=== PATIENT | male | born 1950 | race American Indian/Alaskan Native ===

== ENCOUNTER 2020-05-01 14:41 | Outpatient (REF) | payer SELFPAY | END 2020-05-01 14:42 | disposition home or self-care (01) | LOC: HO.LAB 14:41 | PROVIDERS: PCP Internal Medicine; Visit Provider Internal Medicine | DX: Z13.89 Encounter for screening for other disorder (principal) ==

== ENCOUNTER 2021-05-24 14:07 | Outpatient (REF) | payer OTHER, SELFPAY ==
[2021-05-24 15:28] LABS: COVID-19 Test Positive (Negative)
== END 2021-05-24 14:08 | disposition home or self-care (01) ==
LOC: HO.LAB 14:07
PROVIDERS: Visit Provider Internal Medicine
DX: Z20.822 Contact with and (suspected) exposure to COVID-19 (principal)
CPT/HCPCS: 36415; 87635; C9803

== ENCOUNTER 2023-07-23 08:27 | Outpatient (REF) | payer MEDICARE, SELFPAY ==
[2023-07-23 08:47] LABS: MANUAL DIFF FLAG NO
[2023-07-23 09:27] LABS: Basophils Percent Auto 0.6 % (0-2); Eosinophils Absolute Auto 0.1 X10*3/uL (0.0-0.4); Eosinophils Percent Auto 2.7 % (0-4); Hematocrit 45.8 % (42.0-52.0); Hemoglobin 15.4 g/dl (14.0-18.0); Imm Gran Abs Auto 0.02 X10*3/uL (0.00-0.03); Imm Gran Pct Auto 0.4 % (0.0-0.4); Lymphocytes Absolute Auto 2.5 X10*3/uL (1.2-4.9); Mean Corpuscular HGB Conc 33.6 g/dl (31.0-36.0); Mean Corpuscular Hemoglobin 29.1 pg (27.0-33.0); Mean Corpuscular Volume 86.4 fL (80.0-98.0); Mean Platelet Volume 10.1 fL (9.4-12.4); Monocytes Absolute Auto 0.5 X10*3/uL (0.1-1.2); Monocytes Percent Auto 9.3 % (2-11); Neutrophils Absolute Auto 2.1 x10*3/uL (2.0-8.3); Platelet Count 263 X10*3/uL (160-400); Red Cell Distribution Width 13.2 % (11.0-16.0); White Blood Count 5.3 X10*3/uL (4.8-10.8)
[2023-07-23 10:06] LABS: Alanine Aminotransferase 37 U/L (0-40); Albumin Level 4.3 g/dL (3.5-5.0); Alkaline Phosphatase 61 U/L (39-117); Anion Gap 10 (12-20); Aspartate Amino Transferase 22 U/L (5-37); Bilirubin Total 0.6 mg/dL (0.0-1.0); Blood Urea Nitrogen 17 mg/dL (9-16); Calcium 9.5 mg/dL (8.4-10.2); Carbon Dioxide 29 mmol/L (22-29); Chloride 106 mmol/L (96-108); Cholesterol 141 mg/dL (<200); Estimated Glomerular Filt Rate > 60; Glucose Random 112 mg/dL (60-115); HDL Cholesterol 54 mg/dL (>40); LDL Cholesterol Calculated 74 mg/dL (<100); Potassium 4.2 mmol/L (3.3-5.1); Sodium 141 mmol/L (135-145); Total Protein 7.6 g/dL (6.5-8.0); Triglycerides 69 mg/dL (<150)
[2023-07-23 10:10] LABS: Thyroid Stimulating Hormone 3.31 uIU/mL (0.32-4.0)
== END 2023-07-23 08:28 | disposition home or self-care (01) ==
LOC: HO.LAB 08:27
PROVIDERS: PCP Internal Medicine; Visit Provider Internal Medicine
DX: Z00.01 Encounter for general adult medical examination with abnormal findings (principal); I10 Essential (primary) hypertension; R07.89 Other chest pain
CPT/HCPCS: 36415; 80053; 80061; 84443; 85025

== ENCOUNTER 2023-10-05 13:19 | Outpatient (AMB) | payer MEDICARE, SELFPAY ==
[2023-10-05 13:22] VITALS: BP 130/80; PULSE 90; BMI 29.4
--- NOTE | 2023-10-05 13:22 | MHC.OFFVIS ---
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 He states that for the last few months, he has been noticing discomfort in the substernal area as well as the right side of the chest. Exertional characteristics and suggestive of angina. No previous diagnosis of coronary artery disease or myocardial infarction or cardiomyopathy extra. Otherwise, has hypertension on medications. He is here with his daughter who is the engine assembly supervisor. Appropriate form was signed. [facility] Medical History (Updated 10/05/23 @ 13:38 by Daniel Zhang MD) Insomnia Depression Hypertension GERD (gastroesophageal reflux disease) Surgical History History of cataract surgery Family History Father No problems noted. Mother Diabetes Son Chronic mental illness Social History (Updated 10/05/23 @ 13:28 by Linda Briceño CMA) Alcohol intake: never Patient Tobacco Use Status: Never used Tobacco Review of Systems Const Denies chills, Denies fatigue, Denies fever(s), Denies frequent falls, Denies weakness, Denies weight gain and Denies weight loss ENT Denies dizziness Card Denies chest pain, Denies leg edema, Denies lightheadedness, Denies palpitations, Denies dyspnea and Denies dyspnea on exertion Resp Denies cough, Denies dyspnea and Denies dyspnea on exertion GI Denies hematochezia Musc Denies abnormal gait, Denies muscle weakness, Denies numbness, Denies radiating pain into limb and Denies tingling Neuro Denies abnormal gait, Denies dizziness, Denies frequent falls, Denies numbness, Denies tingling and Denies weakness Endo Denies fatigue and Denies palpitations Physical Exam Vital Signs: Last Vital Signs Pulse 90 10/05/23 13:22 BP 130/80 10/05/23 13:22 BMI result Body Mass Index 29.4 Const General: comfortable and no acute distress Orientation/consciousness: patient oriented x3 HEENT Other: Unremarkable Head: Yes normal to inspection Neck Neck: Yes normal visual inspection Chest Chest palpation & inspection: normal inspection of the chest Resp Auscultation: clear to auscultation bilaterally Cardio Palpation: normal PMI Heart sounds: S1 normal heart sound present, S2 normal heart sound present, no gallops, no murmurs and no rubs GI Palpation (GI): Soft to palpation Back/Spine/Pelvis Other: unremarkable Skin General skin exam: no rashes or lesions noted Neuro General: patient oriented x3 Extrem General: Yes normal to inspection Psych Mental Status: mental status grossly normal Office Procedures EKG Details: In the recent EKG, underlying rhythm is sinus at a rate of 90/Min; minimal criteria for LVH; no significant ST-T changes and otherwise unremarkable. [id number], Complete Assessment & Plan Assessment & Plan (1) Precordial chest pain: Code(s): R07.2 - Precordial pain Category: Medical (2) Hypertension: Code(s): I10 - Essential (primary) hypertension Category: Medical Qualifiers: Hypertension type: essential hypertension Qualified Code(s): I10 - Essential (primary) hypertension Plan History suggestive of angina pectoris. We discussed about different options for further workup. Discussed about diagnostic catheterization as the symptoms are fairly classic but he is refusing at this time. He would like to avoid it as much possible. Discussed about the possibility of obstructive coronary disease, risk of myocardial infarction extra but he is still not interested. Hence we can start with noninvasive workup with echocardiogram and stress test. Based on the findings, we can plan further. Patient did not know his medications and we call the pharmacy to get the list but it was after the patient left the office. Hence no changes made for now. Follow-up after testing. Orders: Orders CA echo transthoracic complete Today I25.10 - Atherosclerotic heart disease of [place] coronary artery without angina pectoris, R07.2 - Precordial pain CA stress test Today R07.2 - Precordial pain NM cardiolite stress test Today R07.2 - Precordial pain Coding Level of Care Code New Pt Level 4 (42838) Diagnoses Precordial chest pain R07.2 Essential hypertension I10 Hypertension type: essential hypertension CPT Codes EKG - CPT: 26114-[id number], Complete ([id number])
== END 2023-10-05 13:51 | disposition home or self-care (01) ==
PROVIDERS: PCP Internal Medicine; Visit Provider Internal Medicine
DX: R07.2 Precordial pain (principal); I10 Essential (primary) hypertension
CPT/HCPCS: 93010; 99204

== ENCOUNTER → 2023-10-05 13:19 | Outpatient (BNVA) | payer MEDICARE, SELFPAY | PROVIDERS: PCP Internal Medicine; Visit Provider Internal Medicine | DX: R07.2 Precordial pain (principal); I10 Essential (primary) hypertension | CPT/HCPCS: 93005; 99202 ==

== ENCOUNTER → 2023-11-22 07:51 | Outpatient (REF) | payer MEDICARE, SELFPAY ==
--- NOTE | 2023-11-22 07:57 | CA_ITS ---
Transthoracic Echocardiogram Patient (Last, First, Middle): Adilson Mejía, Gender: Male Date of : 1950 Age: 71 Procedure Date: 11/22/2023 Procedure Type: Transthoracic Echocardiogram Location: OP Height: 157.48 cm Weight: 75.3 kg BSA: 1.77 m2 Heart Rate: 73 bpm BP: 175 / 85 mmHg Enterprise Business Architect: CARSON Referring MD: Daniel Zhang MD Symptoms: I25.10 - Atherosclerotic heart disease of [place] coronary artery without... Study Quality: Fair ECG Rhythm: Sinus Conclusions: - The left ventricular systolic function is normal. The calculated ejection fraction is 62% by biplane method. - There is mildly increased left ventricular wall thickness. - No obvious valvular pathology seen on this study. Findings Left Ventricle Normal left ventricular cavity size. There is mildly increased left ventricular wall thickness. The left ventricular systolic function is normal. The calculated ejection fraction is 62% by biplane method. There is no evidence of regional wall motion abnormalities. Diastolic function is normal for age. LV peak GLS -15.5%; possibly underestimate. Right Ventricle Mildly increased right ventricular cavity size. There is normal right ventricular systolic function. Atria Both atria are normal in size. Aortic Valve There is a normal trileaflet aortic valve. There is no aortic valve stenosis. There is trace (trivial) aortic valve regurgitation. Mitral Valve The mitral valve appears normal. There is trace mitral valve regurgitation. There is no mitral valve stenosis. Pulmonic Valve The pulmonic valve is likely normal. Tricuspid Valve Normal tricuspid valve structure. There is mild tricuspid valve regurgitation. There is no evidence of pulmonary hypertension. Great Vessels There is mild dilatation of the ascending aorta measuring 4.00 cm. Venous The inferior vena cava is normal in size and collapses greater than 50% with inspiration. Pericardium/Pleural There is no evidence of pericardial effusion. Prior Study Comparison No significant change compared to prior study dated: 11/11/2010. Recommendations, Care & Conclusions No obvious valvular pathology seen on this study. Measurements 2D Linear Measurements IVSd: 1.27 0.6-0.9/0.6-1.0 cm LVIDd: 3.36 3.9-5.3/4.2-5.9 cm LVIDd Index: 1.90 2.4-3.2/2.2-3.1 cm/m2 LVIDs: 1.85 2.0-3.6 cm LVPWd: 1.21 0.7-1.1 cm LA Diam: 2.90 2.7-3.8/3.0-4.0 cm LAIDs Index: 1.64 1.5-2.3 cm/m2 LV Mass: 167.69 67-162/88-224 g LV Mass Index: 94.74 43-95/49-115 g/m2 LVOT Diam: 1.80 3.0+(-)1.3 cm 2D Systolic Function EF 4C: 56.00 >55% EF 2C: 70.80 >55% EF BiP: 62.30 >55% Mitral Valve MV Pk E: 0.62 MV PK A: 0.78 MV Decel Time: 181.00 E/A: 0.80 E'Lateral: 8.70 E'Medial: 5.11 E/E' Med: 12.20 E/E' Lat: 7.10 PHT: 53.00 MVA PHT: 4.15 Decel [place]: 3.44 Aortic Valve AoV Pk Sidney: 0.96 AoV Mn Sidney: 0.72 AoV VTI: 0.21 AoV Pk Grad: 4.00 Aov Mn Grad: 2.00 TEREZA Cont.VTI: 1.96 LVOT LVOT Pk Sidney: 0.75 LVOT Mn Sidney: 0.53 LVOT VTI: 0.16 LVOT Pk Grad: 2.00 LVOT Mn Grad: 1.00 LVOT Diam: 1.80 LVOT Area: 2.54 Diastolic Function MV Pk E: 0.62 MV Pk A: 0.78 E/A: 0.80 E'Medial: 5.11 E/E' Med: 12.20 E' Laterial: 8.70 E/E' Lat: 7.10 Right Ventricle TAPSE (mm): 20.40 TVS' Sidney: 10.00 Tricuspid Valve TR Pk Sidney: 1.98 TR Pk Grad: 16.00 RA Press: 3.00 RVSP: 19.00 Great Vessels Aorta Sinus of Valsalva: 3.50 2.0-3.5 cm Ao Asc: 4.00 2.1-3.4 cm Ao Arch: 3.70 Pulmonary Valve PV Pk Sidney: 1.03 Peak PV Grad: 4.00 Updated in Other Vendor System with Status of Final Daniel Zhang MD electronically signed on 11/22/2023 10:08:00 AM with status of Final
--- NOTE | 2023-11-22 07:57 | CA_ITS ---
Acquisition Time: 2023-11-22 09:25:41 Total Exercise Time: 00:05:02 Test Indications: R07.2 - Precordial pain Medications: Protocol: [place] Max HR: 136 BPM 90% of Pred: 150 BPM Max BP: 198/088 mmHG Max Work Load: 4.6 METS Exercise stress test exercise 5 min 2 sec of [place] protocol stage 1 (patient couldnt go faster) achieivng 89% MPHR, without anginal symptoms, without arrhtyhmias, with hypertensive response - max BP 198/88, without EKG changes, Test reviewed with Dr. Zhang. Educated the need for IV and imaging and patient refused. Patient did not take medication or have with him day of the test. Referred By: Daniel Zhang Overread By: Tresa Montejo
== END ==
LOC: HO.CARD 07:51
PROVIDERS: PCP Internal Medicine; Visit Provider Internal Medicine
DX: R07.2 Precordial pain (principal); I25.10 Atherosclerotic heart disease of native coronary artery without angina pectoris
CPT/HCPCS: 93017; 93306; 93356

== ENCOUNTER → 2023-11-22 07:57 | Outpatient (BNV) | payer MEDICARE, SELFPAY | PROVIDERS: PCP Internal Medicine; Visit Provider Internal Medicine | DX: I36.1 Nonrheumatic tricuspid (valve) insufficiency (principal); I25.10 Atherosclerotic heart disease of native coronary artery without angina pectoris; R07.2 Precordial pain | CPT/HCPCS: 93016; 93018; 93350; 93356 ==

== ENCOUNTER 2023-12-15 13:25 | Outpatient (AMB) | payer MEDICARE, SELFPAY ==
[2023-12-15 13:39] VITALS: BP 122/70; PULSE 86; BMI 29.7
--- NOTE | 2023-12-15 13:39 | MHC.OFFVIS ---
Vital Signs 12/15/23 13:39 Height 5 ft 3 in Weight 167 lb 8.821 oz BMI 29.7 BP 122/70 Blood Pressure Location Lt brachial Position Sitting Pulse 86 Pulse Source Pulse Oximeter Intake Visit Reasons: follow up/stress mibi/echo [employer] Required: Yes [employer] Name: daughter Allergies hydrochlorothiazide Adverse Reaction (Unknown, Verified 04/04/20 07:45) dizziness unknown medication Allergy (Unknown, Uncoded 08/10/16 00:00) hives HPI Comments Details: 72-year-old male presents today with his daughter who is translating for him. Patient had seen Dr. Zhang for chest discomforts on exertion. Her had a stress test which he refused the IV and an echocardiogram. He denies chest pains and shortness of breath. He reports he has not used the nitrogylcerin. [facility] Medical History (Updated 10/05/23 @ 13:38 by Daniel Zhang MD) Insomnia Depression Hypertension GERD (gastroesophageal reflux disease) Surgical History History of cataract surgery Family History Father No problems noted. Mother Diabetes Son Chronic mental illness Social History (Updated 10/05/23 @ 13:28 by Linda Briceño CMA) Alcohol intake: never Patient Tobacco Use Status: Never used Tobacco Review of Systems Const Denies weakness ENT Denies dizziness Card Denies chest pain, Denies chest pain with activity, Denies syncope, Denies rapid heart rate, Denies pedal edema, Denies edema, Denies leg edema, Denies lightheadedness, Denies palpitations, Denies dyspnea, Denies dyspnea on exertion and Denies orthopnea Resp Denies cough, Denies dyspnea and Denies dyspnea on exertion GI Denies hematochezia and Denies change in stool character Musc Denies abnormal gait, Denies muscle cramps, Denies muscle weakness, Denies numbness, Denies radiating pain into limb and Denies tingling Neuro Denies abnormal gait, Denies dizziness, Denies syncope, Denies numbness, Denies tingling and Denies weakness Endo Denies palpitations Physical Exam Vital Signs: Last Vital Signs Pulse 86 12/15/23 13:39 BP 122/70 12/15/23 13:39 BMI result Body Mass Index 29.7 Const General: healthy appearing and no acute distress Orientation/consciousness: patient oriented x3 HEENT Head: Yes normal to inspection Eyes General: appearance normal, both eyes and all related structures Neck Neck: Yes normal visual inspection Chest Chest palpation & inspection: normal inspection of the chest Resp Effort & Inspection: normal respiratory effort Auscultation: clear to auscultation bilaterally Cardio Jugular venous distension: no JVD Palpation: normal PMI Rate: regular rate Rhythm: regular rhythm Heart sounds: S1 normal heart sound present, S2 normal heart sound present, no click, no gallops, no murmurs and no rubs GI Inspection: Yes normal to inspection Palpation (GI): Soft to palpation Skin General skin exam: no rashes or lesions noted Neuro General: patient oriented x3 Extrem General: Yes normal to inspection Psych Appearance: grossly normal Results Reviewed Results Reviewed: Echo Conclusions: - The left ventricular systolic function is normal. The calculated ejection fraction is 62% by biplane method. - There is mildly increased left ventricular wall thickness. - No obvious valvular pathology seen on this study. Stress: Protocol: [place] Max HR: 136 BPM 90% of Pred: 150 BPM Max BP: 198/088 mmHG Max Work Load: 4.6 METS Exercise stress test exercise 5 min 2 sec of [place] protocol stage 1 (patient couldnt go faster) achieivng 89% MPHR, without anginal symptoms, without arrhtyhmias, with hypertensive response - max BP 198/88, without EKG changes, Test reviewed with Dr. Zhang. Educated the need for IV and imaging and patient refused. Patient did not take medication or have with him day of the test. Assessment & Plan Assessment & Plan (1) Precordial chest pain: Code(s): R07.2 - Precordial pain Category: Medical Plan Chest pains suggestive of of angina. Educated to keep nitrogylcerin with him. Will order CTA to assess further. Discussed possible need for cardiac catherization and to discuss further with family as patient declined in the past. Patient reports understanding. ED care if needed. Orders: Orders CT Cardiac Coronary Angio 12/15/23 R07.2 - Precordial pain Basic Metabolic Panel 12/15/23 R07.2 - Precordial pain Coding Level of Care Code Est Pt Level 3 (98960) Diagnoses Precordial chest pain R07.2
== END 2023-12-15 14:15 | disposition home or self-care (01) ==
PROVIDERS: PCP Internal Medicine; Visit Provider Nurse Practitioner
DX: R07.2 Precordial pain (principal)
CPT/HCPCS: 99213

== ENCOUNTER → 2023-12-15 13:25 | Outpatient (BNVA) | payer MEDICARE, SELFPAY | PROVIDERS: PCP Internal Medicine; Visit Provider Nurse Practitioner | DX: R07.2 Precordial pain (principal) | CPT/HCPCS: 99212 ==

== ENCOUNTER 2024-01-20 10:58 | Emergency (ER) | payer MEDICARE, SELFPAY ==
--- NOTE | ~2024-01-20 | CT_ITS ---
EXAMINATION: CT ABDOMEN AND PELVIS WITH CONTRAST CLINICAL INFORMATION: Right lower quadrant pain COMPARISON: None available. TECHNIQUE: Multidetector volumetric images were obtained from the superior aspect of the liver through the pubic symphysis following administration 85 mL of Omnipaque 350 intravenous contrast. Sagittal and coronal reformatted images were obtained on the technologist's workstation. Oral contrast: No This CT examination was performed using dose optimization techniques as appropriate, variously including the following: *Automated exposure control *Adjustment of mA and/or kV according to patient size (this includes techniques or standardized protocols for targeted exams where dose is matched to indication/reason for exam; i.e. extremities or head) *Use of iterative reconstruction technique DLP: 441 mGy-cm FINDINGS: LUNG BASES: The visualized lung bases are unremarkable. Heart size is prominent. No pericardial effusion. LIVER, GALLBLADDER, AND BILIARY TREE: Diffuse low-attenuation of the parenchyma due to fatty change. No focal liver lesion or intrahepatic bile duct dilatation. The gallbladder is unremarkable with no evidence of radiopaque gallstones, gallbladder wall thickening, or obvious pericholecystic inflammatory changes. PANCREAS: Unremarkable. SPLEEN: Unremarkable. ADRENAL GLANDS: Unremarkable. KIDNEYS AND URETERS: The kidneys are normal in size, shape, and attenuation. No hydronephrosis, hydroureter, or calculi seen. No perinephric stranding. BLADDER: There is diffuse bladder wall thickening. This is likely due to chronic bladder outlet obstruction from prostatomegaly. GASTROINTESTINAL TRACT: There are numerous diverticula throughout the colon. There is no diverticulitis. There is no bowel wall thickening /edema. There is no bowel obstruction. There is a moderate volume of stool in the colon. The appendix is nonvisualized . The small bowel loops are unremarkable. The stomach is normal. There is small hiatal hernia. ABDOMINAL WALL: No significant hernia is appreciated. LYMPH NODES: Normal. VASCULAR: Unremarkable. PELVIC VISCERA: Prostate enlargement. The prostate measures 5 cm transverse. OSSEOUS STRUCTURES: Unremarkable. CT/CT abdomen pelvis w IV con IMPRESSION: 1. No acute abnormality CT scan abdomen pelvis. 2. Diffuse fatty change of liver. 3. Prostate enlargement. 4. Diffuse bladder wall thickening likely due to chronic bladder outlet obstruction. 5. Diverticulosis of colon. No acute change of the bowel. Fleischner guidelines were followed. Electronically signed by: Weston Mills MD 01/20/2024 06:16 PM EDT RP
--- NOTE | ~2024-01-20 | XR_ITS ---
EXAMINATION: XR ABDOMEN KUB CLINICAL INDICATION: Constipation COMPARISON: Abdominal radiograph 07/21/2016 TECHNIQUE: AP view of the abdomen. FINDINGS: Non-obstructive bowel gas pattern. Moderate colonic stool burden. No acute osseous abnormality. No abnormal soft tissue calcifications. The included lung bases are clear. XR/XR KUB IMPRESSION: Moderate colonic stool burden. Non-obstructive bowel gas pattern. Electronically signed by: Joni Becerra MD 01/20/2024 12:45 PM EDT
[2024-01-20 11:11] VITALS: BP 170/91; PULSE 74; RESP 18; TEMP 36.8; O2SAT 98; BMI 26.4
[2024-01-20 12:03] LABS: MANUAL DIFF FLAG NO
[2024-01-20 12:06] LABS: Basophils Percent Auto 0.3 % (0-2); Eosinophils Absolute Auto 0.1 X10*3/uL (0.0-0.4); Eosinophils Percent Auto 1.4 % (0-4); Hematocrit 45.3 % (42.0-52.0); Hemoglobin 15.5 g/dl (14.0-18.0); Imm Gran Abs Auto 0.02 X10*3/uL (0.00-0.03); Imm Gran Pct Auto 0.2 % (0.0-0.4); Lymphocytes Absolute Auto 1.4 X10*3/uL (1.2-4.9); Lymphocytes Percent Auto 15.5 % (20-40); Mean Corpuscular HGB Conc 34.2 g/dl (31.0-36.0); Mean Corpuscular Volume 87.6 fL (80.0-98.0); Mean Platelet Volume 9.9 fL (9.4-12.4); Monocytes Absolute Auto 0.6 X10*3/uL (0.1-1.2); Monocytes Percent Auto 6.6 % (2-11); Neutrophils Absolute Auto 6.7 x10*3/uL (2.0-8.3); Platelet Count 261 X10*3/uL (160-400); Red Blood Count 5.17 X10*6/uL (4.60-5.80); Red Cell Distribution Width 13.1 % (11.0-16.0); White Blood Count 8.8 X10*3/uL (4.8-10.8)
[2024-01-20 12:26] LABS: IDNOW Serial# 08D9AD1C; Strep A Nucleic Acid Negative (Negative)
[2024-01-20 12:33] LABS: Alanine Aminotransferase 29 U/L (0-40); Albumin Level 4.2 g/dL (3.5-5.0); Alkaline Phosphatase 49 U/L (39-117); Anion Gap 11 (12-20); Aspartate Amino Transferase 24 U/L (5-37); Bilirubin Total 0.6 mg/dL (0.0-1.0); Blood Urea Nitrogen 14 mg/dL (9-16); Calcium 9.6 mg/dL (8.4-10.2); Carbon Dioxide 26 mmol/L (22-29); Chloride 108 mmol/L (96-108); Creatinine Clr Calc Pharmacy 51.2; Estimated Glomerular Filt Rate > 60; Glucose Random 114 mg/dL (60-115); Lipase 25 U/L (8-78); Magnesium 2.1 mg/dL (1.6-2.6); Sodium 141 mmol/L (135-145); Total Protein 7.4 g/dL (6.5-8.0)
[2024-01-20 12:42] LABS: Influenza A PCR NEGATIVE (Negative); Influenza B PCR NEGATIVE (Negative); Resp Syncy Virus RNA Qual PCR NEGATIVE (Negative); SARS COV2 PCR INHOUSE NEGATIVE (Negative)
[2024-01-20 15:33] VITALS: BP 176/95; PULSE 73; RESP 17; TEMP 36.4; O2SAT 98
--- NOTE | 2024-01-20 15:56 | ED.ABDPAIN ---
HPI - Abdominal Pain General Chief Complaint: Abdominal Pain Stated Complaint: Abd pain Time Seen by Provider: 01/20/24 15:18 Source: patient, RN notes reviewed and rib sawyer Mode of arrival: ambulatory Limitations: language barrier History of Present Illness ED Provider: Sarah Ho PA-C HPI narrative: This is a 73-year-old Colombian-speaking male, with a history of hypertension, noncompliant on medications, who presents emergency department with complaints of abdominal pain since 8:00 a.m. this morning. Patient describes his pain as a sharp intermittent pain. He denies any fevers, chills, chest pain, shortness breath, nausea, vomiting or diarrhea. He does endorse constipation, states he moved his bowels this morning at 2:00 a.m. he states that he has had trouble with constipation ever since he had a colonoscopy several years ago. He denies any other complaints or concerns at this time. MD elicited complaint: abdominal pain Pertinent past history: constipation Onset (ago): hour(s) Pain Consistency: intermittent Location: RLQ Severity: moderate Quality: cramping Radiation: none Migration to: no migration Exacerbating factors: nothing Relieving factors: nothing Associated symptoms: constipation Related Data Home Medications ?Medication ?Instructions ?Recorded ?Confirmed losartan 100 1 tab PO DAILY 10/05/23 10/05/23 mg-hydrochlorothiazide 25 mg tablet metoprolol succinate 100 mg 100 mg PO DAILY 10/05/23 10/05/23 tablet,extended release 24 hr nitroglycerin 0.3 mg sublingual 0.3 mg sublingual Q5M PRN 10/05/23 10/05/23 tablet Previous Rx's ?Medication ?Instructions ?Recorded isosorbide mononitrate 30 mg 30 mg PO DAILY #90 tabs 10/05/23 tablet,extended release 24 hr docusate calcium 240 mg capsule 240 mg PO DAILY #20 caps 01/20/24 polyethylene glycol 3350 17 17 g PO DAILY #119 grams 01/20/24 gram/dose oral powder (Miralax) Allergies Allergy/AdvReac Type Severity Reaction Status Date / Time hydrochlorothiazide AdvReac Unknown dizziness Verified 01/20/24 11:19 unknown medication Allergy Unknown hives Uncoded 01/20/24 11:19 Review of Systems Review of Systems Yes all other systems are reviewed and are negative Constitutional: Reports as per HPI [facility] Past Medical History Attestation statement: The following information was validated with the patient. Medical History Insomnia Depression Hypertension GERD (gastroesophageal reflux disease) Surgical History History of cataract surgery Family History Family History Father No problems noted. Mother Diabetes Son Chronic mental illness Social History Social History Alcohol intake: never Patient Tobacco Use Status: Never used Tobacco Advance Directives: No Advance Directives Information Provided: No Do you have a plan to hurt others: No Plan Physical Exam ED Vital Signs: Vital Signs - 24 hr 01/20/24 11:11 01/20/24 15:33 01/20/24 18:57 Temperature 98.3 F 97.5 F 97.5 F Pulse Rate 74 73 73 Respiratory Rate 18 17 17 Blood Pressure 170/91 H 176/95 H 176/95 H Pulse Oximetry 98 98 98 Oxygen Delivery Method Room Air Room Air Room Air BMI result Body Mass Index 26.4 Const General: cooperative, comfortable and no acute distress Orientation/consciousness: patient oriented x3 Limitations: no limitations [facility] Head: Yes normal to inspection, Yes normocephalic and Yes atraumatic Ears: hearing grossly normal bilaterally General nose exam: Normal external nose present Face and sinus: Yes normal facial exam Mouth: Normal oral and palatal mucosa present, oropharynx normal and moist mucous membranes Throat: Yes posterior oropharynx normal Eyes General: appearance normal, both eyes and all related structures Eyelids: Yes eyelids normal Conjunctivae: conjunctivae normal Sclerae: sclerae normal Pupils: Equal, round and reactive pupils present EOM: EOMs intact bilaterally Neck Neck: Yes normal visual inspection, Yes full ROM and Yes no lymphadenopathy Lymphatic: no lymphadenopathy noted Chest Chest palpation & inspection: normal inspection of the chest Resp Effort & Inspection: normal respiratory effort and able to speak in complete sentences Auscultation: clear to auscultation bilaterally, no crackles, no rales, no rhonchi and no wheezes Cardio Rate: regular rate Rhythm: regular rhythm Heart sounds: S1 normal heart sound present and S2 normal heart sound present GI Other: Abdomen is soft, with tenderness palpation in the right lower quadrant. No rebound or guarding. Inspection: Yes normal to inspection Skin General skin exam: no rashes or lesions noted Trauma: no lacerations or abrasions Wounds: no wounds Neuro General: patient oriented x3 and moves all extremities Cranial nerves: Yes Equal, round and reactive pupils present Extrem General: Yes normal to inspection Right upper extremity: normal to inspection Left upper extremity: normal to inspection Right lower extremity: normal to inspection Left lower extremity: normal to inspection Medical Decision Making Medical Decision Making [facility] Narrative: This is a 73-year-old male, with a history of hypertension noncompliant on medications, who presents emergency department with complaints of right lower abdominal pain since 8:00 a.m. this morning. On arrival, patient hypertensive at 170/91, he has no headaches, blurred vision, or chest pain. Labs were ordered prior to my assessment, he has no leukocytosis, stable H&H, chemistry within normal limits, viral swabs negative. A KUB x-ray was ordered and revealed moderate stool burden. No obstruction seen. On my examination, he had right lower quadrant tenderness therefore CT scan was ordered. CT scan reveals evidence of diverticulosis, enlarged prostate, and fatty liver. I discussed these findings with patient as well as son at bedside. They will follow-up with the primary care physician. Given constipation, will treat with MiraLax and docusate. Patient given strict return precautions. He is feeling well and would like to leave as he is very hungry. He understands strict return precautions. I also stressed the importance of following up with his primary care physician regarding his hypertension. He states that he is not taking his medications that are prescribed to him. I educated the importance of taking these medications as it can lead to deadly consequences. Son at bedside understands and will relay the message to his father as well as follow-up with the PCP. Patient understands and agree with plan stable for discharge Differential Diagnosis Differential Diagnoses: The differential diagnosis associated with the presentation includes Constipation, SBO, diverticulitis, appendicitis Lab Data [facility] Lab Attestation statement: I reviewed the patient's lab results. See [facility] 01/20/24 11:51 01/20/24 11:51 Labs: Lab Results 01/20/24 01/20/24 Range/Units 11:49 11:51 WBC 8.8 (4.8-10.8) X10*3/uL RBC 5.17 (4.60-5.80) X10*6/uL Hgb 15.5 (14.0-18.0) g/dl Hct 45.3 (42.0-52.0) % MCV 87.6 (80.0-98.0) fL MCH 30.0 (27.0-33.0) pg MCHC 34.2 (31.0-36.0) g/dl RDW 13.1 (11.0-16.0) % Plt Count 261 (160-400) X10*3/uL MPV 9.9 (9.4-12.4) fL Immature Gran % (Auto) 0.2 (0.0-0.4) % Neut % (Auto) 76.0 H (45-73) % Lymph % (Auto) 15.5 L (20-40) % [place] % (Auto) 6.6 (2-11) % Eos % (Auto) 1.4 (0-4) % Baso % (Auto) 0.3 (0-2) % Lymph # (Auto) 1.4 (1.2-4.9) X10*3/uL [place] # (Auto) 0.6 (0.1-1.2) X10*3/uL Eos # (Auto) 0.1 (0.0-0.4) X10*3/uL Baso # (Auto) 0.0 (0.0-0.2) X10*3/uL Abs Immat Gran (auto) 0.02 (0.00-0.03) X10*3/uL Absolute Neuts (auto) 6.7 (2.0-8.3) x10*3/uL Absolute Nucleated RBC 0.000 (0.0-0.012) X10*3/uL Nucleated RBC % (auto) 0.0 (0.0-0.2) /100WBC Sodium 141 (135-145) mmol/L Potassium 4.0 (3.3-5.1) mmol/L Chloride 108 (96-108) mmol/L Carbon Dioxide 26 (22-29) mmol/L Anion Gap 11 L (12-20) BUN 14 (9-16) mg/dL Creatinine 1.15 (0.5-1.4) mg/dL Estim Creat Clear Calc 51.2 Estimated GFR > 60 Random Glucose 114 (60-115) mg/dL Calcium 9.6 (8.4-10.2) mg/dL Magnesium 2.1 (1.6-2.6) mg/dL Total Bilirubin 0.6 (0.0-1.0) mg/dL AST 24 (5-37) U/L ALT 29 (0-40) U/L Alkaline Phosphatase 49 (39-117) U/L Total Protein 7.4 (6.5-8.0) g/dL Albumin 4.2 (3.5-5.0) g/dL Lipase 25 (8-78) U/L Influenza Type A (PCR) NEGATIVE (Negative) Influenza Type B (PCR) NEGATIVE (Negative) RSV RNA Qual (PCR) NEGATIVE (Negative) SARS-CoV-2 RNA (RT-PCR) NEGATIVE (Negative) S. pyogenes GrpA SHEREE Negative (Negative) Radiology Impression Discussion of test interpretation with radiology: I have reviewed the radiologist's reading. Radiologist Impression: CT/CT abdomen pelvis w IV con IMPRESSION: 1. No acute abnormality CT scan abdomen pelvis. 2. Diffuse fatty change of liver. 3. Prostate enlargement. 4. Diffuse bladder wall thickening likely due to chronic bladder outlet obstruction. 5. Diverticulosis of colon. No acute change of the bowel. Fleischner guidelines were followed. Electronically signed by: Weston Mills MD 01/20/2024 06:16 PM EDT RP Dictated By: Weston Mills MD XR/XR KUB IMPRESSION: Moderate colonic stool burden. Non-obstructive bowel gas pattern. Electronically signed by: Joni Becerra MD 01/20/2024 12:45 PM EDT RP Dictated By: Joni Becerra Chronic Conditions Patient?s care impacted by: Hypertension Medications Administered Discontinued Medications Generic Name Dose Route Start Last Admin Trade Name Freq PRN Reason Stop Dose Admin Iohexol 100 ml 01/20/24 16:54 01/20/24 16:54 Iohexol 350 Mg/Ml 100 Ml Infus..Btl IV 01/20/24 16:55 85 ml ONCE ONE Administration Discharge Plan Discharge Clinical Impression: Abdominal pain, Constipation Patient Disposition: Home, Self-Care Instructions: Constipation (ED), Acute Abdominal Pain (ED) Additional Instructions: You were seen in the emergency department due to abdominal pain. Your CT scan showed multiple things but nothing to explain your symptoms. You do have evidence of constipation. Please take prescribed medication as directed. Drink plenty of fluids get plenty of rest. Eat lots of fiber containing foods as this help with your symptoms. Of note, you do have evidence of diverticulosis, fatty liver, and enlarged prostate. Please follow-up with the primary care physician regarding these findings. If any new or worsening symptoms occur including but not limited to fevers, chills, chest pain, shortness of breath, please return for re-evaluation. Your blood pressure was elevated, please follow-up with your primary care physician regarding this visit. Prescriptions: New polyethylene glycol 3350 [Miralax] 17 gram/dose powder 17 g PO DAILY Qty: 119 0RF docusate calcium 240 mg capsule 240 mg PO DAILY Qty: 20 0RF No Action metoprolol succinate 100 mg tablet extended release 24 hr 100 mg PO DAILY losartan-hydrochlorothiazide 100-25 mg tablet 1 tab PO DAILY nitroglycerin 0.3 mg tablet, sublingual 0.3 mg sublingual Q5M PRN Rx Instructions: do not exceed 3 doses per episode isosorbide mononitrate 30 mg tablet extended release 24 hr 30 mg PO DAILY Qty: 90 3RF Interventions: ED Discharge Assessment Last Done: 01/20/24 18:57 Discharge Date/Time: 01/20/24 18:58 Print Language: Colombian
[2024-01-20] MEDS: iohexoL 350 MG/ML 100 ML INFUS..BTL IV (16:54)
[2024-01-20 18:57] VITALS: BP 176/95; PULSE 73; RESP 17; TEMP 36.4; O2SAT 98
== END 2024-01-20 18:58 | disposition home or self-care (01) ==
PROVIDERS: Physician Assistant Medical; Emergency Provider Emergency Medicine
DX: R10.9 Unspecified abdominal pain (principal); K59.00 Constipation, unspecified; I10 Essential (primary) hypertension; Z03.818 Encounter for observation for suspected exposure to other biological agents ruled out; Z91.148 Patient's other noncompliance with medication regimen for other reason; Z79.899 Other long term (current) drug therapy
CPT/HCPCS: 0241U; 74018; 74177; 80053; 83690; 83735; 85025; 87651; 99284; Q9967